=== PATIENT | female | born 1990 | race Two or more races ===

== ENCOUNTER 2019-07-20 19:51 | Outpatient (CLI) | payer BC, MEDICAID, SELFPAY ==
[~2019-07-20] VITALS: Ht 165.1 cm; Wt 76.8 kg
[2019-07-20 20:47] LABS: MICROSCOPIC NOT IND
== END 2019-07-20 20:47 | disposition home or self-care (01) ==
LOC: LDOP 19:51
PROVIDERS: ATTEND Obstetrics & Gynecology
DX: O36.8130 Decreased fetal movements, third trimester, not applicable or unspecified (principal); Z3A.40 40 weeks gestation of pregnancy
CPT/HCPCS: 59025; 81003; 99211; G0463